=== PATIENT | male | born 2000 | race Caucasian/White ===

== ENCOUNTER 2021-06-05 21:20 | Observation (INO) ==
[2021-06-05] MEDS ORDERED: Lidocaine/EPI 1:100k 1% 30 ML VIAL INFILT ONE (22:40)
[2021-06-05] MEDS ORDERED: Tetracaine/Benzocaine/Butamben 1 SPRAY AEROSOL MM ONE (22:41)
[2021-06-05] MEDS ORDERED: Hydrogen Peroxide 3% (Sterile) 473 ML SOLUTION IR ONE (23:11)
[2021-06-06] MEDS ORDERED: Naloxone 0.4 MG/ML INJ IVP PRN (00:43)
[2021-06-06] MEDS ORDERED: Acetaminophen 325 MG TABLET PO PRN (00:43)
[2021-06-06] MEDS ORDERED: Melatonin 3 MG TABLET PO PRN (00:43)
[2021-06-06] MEDS ORDERED: *HR* Promethazine 25 MG/ML VIAL IM PRN (00:43)
[2021-06-06] MEDS ORDERED: Ondansetron ODT 4 MG TAB.RAPDIS SL PRN (00:43)
[2021-06-06] MEDS: Ringers Solution, Lactated 1,000 ML IVC SCH ×2 (01:35→08:47)
[2021-06-06] MEDS: Hydrogen Peroxide 3% (Sterile) 473 ML SOLUTION MC SCH ×5 (01:42→20:37)
[2021-06-06 06:01] LABS: Basophils % 0.2 %; Eosinophils # 0.1 K/mcL (0.0-0.6); Eosinophils % 0.3 %; Hematocrit 42.9 % (37.5-50.1); Hemoglobin 14.2 g/dL (12.9-16.9); Immature Granulocytes % 0.5 % (0-4); Lymphocytes # 1.6 K/mcL (0.6-4.6); Lymphocytes % 9.1 %; Mean Corpuscular HGB Conc 33.1 g/dL (31.6-35.5); Mean Corpuscular Hemoglobin 29.2 pg (28.0-33.3); Mean Corpuscular Volume 88.3 fL (83.0-100.0); Mean Platelet Volume 8.9 fL (9.4-12.4); Monocytes # 1.4 K/mcL (0.0-1.3); Monocytes % 7.9 %; Neutrophils # 14.2 K/mcL (1.6-8.9); Platelet Count 254 K/mcL (140-400); Red Blood Count 4.86 M/mcL (4.19-5.50); Red Cell Distribution Width 13.1 % (11.5-14.5); White Blood Count 17.4 K/mcL (4.3-11.1)
[2021-06-06 06:15] LABS: BUN/Creatinine Ratio 10 (6-26); Blood Urea Nitrogen 9 mg/dL (6-20); Calcium 9.4 mg/dL (8.6-10.3); Carbon Dioxide 27 mEq/L (23-29); Chloride 98 mEq/L (98-107); Glucose 96 mg/dL (70-105); Osmolality,Calculated 277 (280-300); Potassium 4.2 mEq/L (3.5-5.1); Sodium 134 mEq/L (136-145); eGFR For African Americans > 60 (> 60); eGFR For Non-African Americans > 60 (> 60)
[2021-06-06] MEDS: Clindamycin 600 MG/50 ML 600 MG/50 ML IV.SOLN IVPB SCH ×3 (08:46→23:16)
[2021-06-07] MEDS: Hydrogen Peroxide 3% (Sterile) 473 ML SOLUTION MC SCH ×3 (01:52→07:16)
[2021-06-07 03:31] LABS: Hematocrit 42.4 % (37.5-50.1); Hemoglobin 13.3 g/dL (12.9-16.9); Mean Corpuscular HGB Conc 31.4 g/dL (31.6-35.5); Mean Corpuscular Hemoglobin 28.4 pg (28.0-33.3); Mean Corpuscular Volume 90.4 fL (83.0-100.0); Mean Platelet Volume 9.3 fL (9.4-12.4); Platelet Count 243 K/mcL (140-400); Red Blood Count 4.69 M/mcL (4.19-5.50); Red Cell Distribution Width 13.1 % (11.5-14.5); White Blood Count 9.2 K/mcL (4.3-11.1)
[2021-06-07 03:55] LABS: BUN/Creatinine Ratio 13 (6-26); Blood Urea Nitrogen 10 mg/dL (6-20); Calcium 9.5 mg/dL (8.6-10.3); Carbon Dioxide 27 mEq/L (23-29); Chloride 103 mEq/L (98-107); Glucose 84 mg/dL (70-105); Osmolality,Calculated 278 (280-300); Potassium 4.2 mEq/L (3.5-5.1); Sodium 135 mEq/L (136-145); eGFR For African Americans > 60 (> 60); eGFR For Non-African Americans > 60 (> 60)
[2021-06-07] MEDS: Clindamycin 600 MG/50 ML 600 MG/50 ML IV.SOLN IVPB SCH (07:16)
[2021-06-07 07:56] VITALS: BP 117/70; PULSE 64; TEMP 98; O2SAT 98
== END 2021-06-07 10:49 | disposition home or self-care (01) ==
LOC: 3ANU 21:20 → EMEROOARM 21:20 → SUATTDRO 23:31 → 3ANU 06-06 00:50
PROVIDERS: ADMIT Internal Medicine; ATTEND Pharmacist